=== PATIENT | female | born 1985 | race African-American/Black ===

== ENCOUNTER 2019-06-29 15:30 | Emergency (ER) | payer MEDICAID ==
[~2019-06-29] VITALS: Ht 160 cm; Wt 78.0 kg
[2019-06-29 15:56] VITALS: BP 133/62
== END 2019-06-29 17:31 | disposition home or self-care (01) ==
LOC: ER 15:30
DX: K08.89 Other specified disorders of teeth and supporting structures (principal); J45.909 Unspecified asthma, uncomplicated
CPT/HCPCS: 99283

== ENCOUNTER 2023-10-15 08:52 | Emergency (ER) | payer MEDICAID ==
[~2023-10-15] VITALS: Ht 160 cm; Wt 64.5 kg
[2023-10-15 08:53] VITALS: O2SAT 99
[2023-10-15] MEDS: PREDNISONE 20MG TABLET PO ONE (09:36)
[2023-10-15 09:40] VITALS: PULSE 84; RESP 22
[2023-10-15] MEDS: IPRATROPIUM/ALBUTEROL 0.5-3(2.5)MG/3ML NEB HHN ONE (09:40)
[2023-10-15] MEDS ORDERED: P50 MT (10:16)
[2023-10-15] MEDS ORDERED: TOPUD MT (10:16)
[2023-10-15] MEDS ORDERED: ALBU90AE INH (10:16)
[2023-10-15] MEDS ORDERED: IBUP-1525 MT (10:16)
[2023-10-15] MEDS ORDERED: AZIT250T12 MT (10:16)
[2023-10-15 10:26] VITALS: BP 122/58; PULSE 100; RESP 19; TEMP 98.8
== END 2023-10-15 10:30 | disposition home or self-care (01) ==
LOC: ER 08:52
DX: J45.901 Unspecified asthma with (acute) exacerbation (principal)
CPT/HCPCS: 94640; 99283; J7512; Z7610 ×3